=== PATIENT | male | born 1970 | race Caucasian/White ===

== ENCOUNTER 2024-08-17 12:49 | Emergency (ER) | payer OTHER, SELFPAY ==
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
[2024-08-17 12:56] VITALS: BP 160/99; PULSE 107; RESP 20; TEMP 36.7; O2SAT 97
[2024-08-17] MEDS: TETANUS,DIPHTHERIA,AC PERTUSSIS ADULT (0.5 ML) BOOSTRIX IM (13:40)
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
[2024-08-17 15:36] VITALS: BP 142/86; PULSE 99; RESP 20; TEMP 36.9; O2SAT 100
== END 2024-08-17 15:37 | disposition home or self-care (01) ==
PROVIDERS: Emergency Provider Emergency Medicine; PCP Family Medicine
DX: S31.811A Laceration without foreign body of right buttock, initial encounter (principal); S16.1XXA Strain of muscle, fascia and tendon at neck level, initial encounter; S00.81XA Abrasion of other part of head, initial encounter; Z23 Encounter for immunization; Z90.49 Acquired absence of other specified parts of digestive tract; J32.0 Chronic maxillary sinusitis; M47.812 Spondylosis without myelopathy or radiculopathy, cervical region; V43.52XA Car driver injured in collision with other type car in traffic accident, initial encounter
CPT/HCPCS: 12001; 70450; 71046; 72125; 90471; 90715; 99284; J2004